=== PATIENT | female | born 1950 | race Caucasian/White ===

== ENCOUNTER 2017-01-03 09:59 | Emergency (ER) | payer BC ==
[2017-01-03] MEDS ORDERED: IOPAMIDOL-300 100 ML VIAL IVP ONE (13:13)
== END 2017-01-03 15:28 | disposition home or self-care (01) ==
DX: R07.9 Chest pain, unspecified (principal); I25.2 Old myocardial infarction; J45.909 Unspecified asthma, uncomplicated; Z85.43 Personal history of malignant neoplasm of ovary; R03.0 Elevated blood-pressure reading, without diagnosis of hypertension
CPT/HCPCS: 36415; 71010; 71275; 80053; 83690; 84484; 85025; 93005; 93010; 99283; 99284; Q9967

== ENCOUNTER 2018-03-23 12:44 | Outpatient (CLI) | payer BC ==
--- NOTE | 2018-04-05 13:39 | Mammography Report ---
Procedure Date: 03/23/2018 Accession Number: [id number] / [id number] Procedure: COREY - Screening Mammo Dig Bilat CPT Code: FULL RESULT: EXAM: Screening Mammo Dig Bilat DATE: 03/23/2018 1:29 PM CLINICAL HISTORY: ROUTINE MAMMOGRAM TECHNIQUE: Bilateral CC and MLO views were obtained. COMPARISON: Films from [facility] dated 03/11/2014, 09/11/2012 FINDINGS: The breasts demonstrate scattered fibroglandular densities bilaterally. Coarse, typically benign calcifications are present. No suspicious masses, clustered microcalcifications, or regions of architectural distortion are identified. IMPRESSION: Benign findings RECOMMENDATION: Routine annual screening unless otherwise clinically indicated. BIRADS CATEGORY 2: Benign findings STANDARD QUALIFYING STATEMENTS: 1. This examination was reviewed with the aid of Computer-Aided Detection (CAD). 2. A negative or benign imaging report should not delay biopsy if clinically suspicious findings are present. Consider surgical consultation if warrented. More than 5% of cancers are not identified by imaging. 3. Dense breasts may obscure an underlying neoplasm.
== END 2018-03-23 12:45 | disposition home or self-care (01) ==
LOC: DI 12:44
PROVIDERS: ATTEND Internal Medicine
DX: Z12.31 Encounter for screening mammogram for malignant neoplasm of breast (principal)
CPT/HCPCS: 77067

== ENCOUNTER 2018-05-03 10:31 | Day surgery (SDC) | payer MEDICARE, BC ==
[2018-05-03] MEDS ORDERED: LACTATED RINGERS 1,000 ML IV ONE (10:57)
[2018-05-03] MEDS ORDERED: fentaNYL 100 MCG/2 ML VIAL ONE (10:59)
[2018-05-03] MEDS ORDERED: MIDAZOLAM 2 MG/2 ML VIAL ONE (10:59)
[2018-05-03] MEDS ORDERED: PROPOFOL 200 MG/20 ML VIAL IVP ONE (11:28)
[2018-05-03 12:26] VITALS: BP 118/73
== END 2018-05-03 10:32 | disposition home or self-care (01) ==
LOC: SDS 10:31
PROVIDERS: ATTEND Internal Medicine Gastroenterology
PROC: 0DBN8ZZ Excision of Sigmoid Colon, Via Natural or Artificial Opening Endoscopic (ICD-10-PCS; 2018-05-03)
PROC: 0DBP8ZZ Excision of Rectum, Via Natural or Artificial Opening Endoscopic (ICD-10-PCS; 2018-05-03)
PROC: 0DBC8ZZ Excision of Ileocecal Valve, Via Natural or Artificial Opening Endoscopic (ICD-10-PCS; principal; 2018-05-03 11:00)
DX: Z12.11 Encounter for screening for malignant neoplasm of colon (principal); D12.0 Benign neoplasm of cecum; D12.5 Benign neoplasm of sigmoid colon; K62.1 Rectal polyp; I25.10 Atherosclerotic heart disease of native coronary artery without angina pectoris; J45.909 Unspecified asthma, uncomplicated; E78.5 Hyperlipidemia, unspecified; J32.9 Chronic sinusitis, unspecified; I25.2 Old myocardial infarction; Z95.5 Presence of coronary angioplasty implant and graft; Z87.891 Personal history of nicotine dependence
CPT/HCPCS: 45380; J7120

== ENCOUNTER 2018-11-02 09:02 | Outpatient (CLI) | payer MEDICARE, OTHER ==
--- NOTE | 2018-11-02 12:42 | XRAY Report ---
Reason: RT HIP PAIN Procedure Date: 11/02/2018 Accession Number: [id number] / [id number] Procedure: XR - Hip w/Pelvis 2-3V RT CPT Code: FULL RESULT: EXAM: RIGHT HIP AND PELVIS RADIOGRAPHY EXAM DATE: 11/02/2018 09:24 AM. HISTORY: Right hip pain. COMPARISONS: None. TECHNIQUE: 1 view of the pelvis and 1 view of the hip. FINDINGS: Bones: Normal. No fracture or bone lesion. Joints: The bilateral hip, pubis symphysis, and sacroiliac joints are preserved. Soft Tissues: Normal. No soft tissue swelling. IMPRESSION: Normal pelvis and hip radiography. RADIA
== END 2018-11-02 09:03 | disposition home or self-care (01) ==
LOC: DI 09:02
PROVIDERS: ATTEND Internal Medicine
DX: M25.551 Pain in right hip (principal)

== ENCOUNTER 2019-04-10 13:52 | Outpatient (CLI) | payer MEDICARE, OTHER ==
--- NOTE | 2019-04-11 08:42 | Mammography Report ---
Reason: ENCNTR SCREEN MAMMOGRAM FOR MALIGNANT NEOPLASM OF Procedure Date: 04/10/2019 Accession Number: [id number] / [id number] Procedure: COREY - Screening Mammo w/Sundeep CPT Code: FULL RESULT: EXAM: Screening Mammo w/Sundeep DATE: 04/10/2019 2:23 PM CLINICAL HISTORY: Screening examination. History of nulliparity. TECHNIQUE: (B) - Bilateral CC and MLO views were obtained. COMPARISON: 03/23/2018 through 09/11/2012. PARENCHYMAL PATTERN: (A) - The breast(s) demonstrate(s) scattered fibroglandular densities. FINDINGS: There are coarse typically benign calcifications. There are no suspicious masses, calcifications, or areas of distortion. IMPRESSION: Benign findings. BI-RADS category 2. RECOMMENDATION: (ANNUAL) - Recommend routine annual screening mammography. BI-RADS CATEGORY: (2) - Benign Findings. STANDARD QUALIFYING STATEMENTS: 1. This examination was not reviewed with the aid of Computer-Aided Detection (CAD). 2. A negative or benign imaging report should not preclude biopsy if clinically suspicious findings are present. 3. Dense breasts may obscure an underlying neoplasm. 4. This examination was reviewed with the aid of 3D breast imaging (tomosynthesis).
== END 2019-04-10 13:53 | disposition home or self-care (01) ==
LOC: DI 13:52
PROVIDERS: ATTEND Internal Medicine
DX: Z12.31 Encounter for screening mammogram for malignant neoplasm of breast (principal)
CPT/HCPCS: 77063; 77067

== ENCOUNTER 2019-06-18 16:45 | Outpatient (CLI) | payer MEDICARE, OTHER ==
[2019-06-18 17:23] LABS: BASOPHILS # (AUTO) 0.1 10^3/uL (0.0-0.1); BASOPHILS % (AUTO) 0.7 %; EOSINOPHILS # (AUTO) 0.2 10^3/uL (0.0-0.7); HGB - HEMOGLOBIN 13.2 g/dL (12.0-16.0); LYMPHOCYTES # (AUTO) 2.4 10^3/uL (1.5-3.5); LYMPHOCYTES % (AUTO) 32.8 %; MEAN CORPUSCULAR HEMOGLOBIN 29.3 pg (27.0-31.0); MEAN CORPUSCULAR HGB CONC 32.9 g/dL (32.0-36.0); MEAN CORPUSCULAR VOLUME 88.9 fL (81.0-99.0); MEAN PLATELET VOLUME 10.6 fL (7.9-10.8); MONOCYTES # (AUTO) 0.5 10^3/uL (0.0-1.0); MONOCYTES % (AUTO) 6.8 %; NEUTROPHILS # (AUTO) 4.2 10^3/uL (1.5-6.6); NEUTROPHILS % (AUTO) 56.4 %; PLT - PLATELET COUNT 233 10^3/uL (130-450); RED BLOOD COUNT 4.51 10^6/uL (4.20-5.40); RED CELL DISTRIBUTION WIDTH 13.3 % (12.0-15.0); WHITE BLOOD COUNT 7.4 x10^3/uL (4.8-10.8)
[2019-06-18 17:43] LABS: ALBUMIN 4.3 g/dL (3.2-5.5); ALBUMIN/GLOBULIN RATIO 1.5 (1.0-2.2); BILIRUBIN,TOTAL 0.7 mg/dL (0.2-1.0); CALCIUM 9.7 mg/dL (8.5-10.3); CREATININE 0.9 mg/dL (0.4-1.0); TOTAL PROTEIN 7.2 g/dL (6.7-8.2)
[2019-06-18 17:50] LABS: GLUCOSE, URINE (UA) NEGATIVE (NEGATIVE); KETONES,URINE (UA) TRACE mg/dL (NEGATIVE); LEUKOCYTE ESTERASE, URINE NEGATIVE (NEGATIVE); NITRITE,URINE NEGATIVE (NEGATIVE); OCCULT BLOOD,URINE NEGATIVE (NEGATIVE); PH,URINE 5.5 PH (5.0-7.5); PROTEIN,URINE NEGATIVE (NEGATIVE); UROBILINOGEN,URINE 0.2 (NORMAL) E.U./dL (NORMAL)
[2019-06-18 17:53] LABS: BILIRUBIN,URINE NEGATIVE (NEGATIVE); CLARITY,URINE Y (CLEAR); ICTOTEST,URINE NEGATIVE
== END 2019-06-18 16:46 | disposition home or self-care (01) ==
LOC: LAB 16:45
PROVIDERS: ATTEND Internal Medicine
DX: R10.9 Unspecified abdominal pain (principal); R11.0 Nausea; R19.7 Diarrhea, unspecified; R50.9 Fever, unspecified
CPT/HCPCS: 36415; 80053; 81001; 81003; 82150; 83690; 85025; 87040; 87086

== ENCOUNTER 2019-06-19 08:00 | Outpatient (CLI) | payer MEDICARE, OTHER | END 2019-06-19 23:59 | disposition home or self-care (01) | LOC: LAB.R 08:00 | PROVIDERS: ATTEND Internal Medicine | DX: R10.9 Unspecified abdominal pain (principal); R19.7 Diarrhea, unspecified; R50.9 Fever, unspecified; R11.0 Nausea | CPT/HCPCS: 83630; 87045; 87046; 87177; 87209; 87493 ==

== ENCOUNTER 2019-07-19 10:22 | Outpatient (CLI) | payer MEDICARE, OTHER ==
[2019-07-19] MEDS ORDERED: IOVERSOL 320 100 ML VIAL IVP ONE ×2 (11:17→12:58)
[2019-07-19] MEDS ORDERED: IOVERSOL 320 50 ML VIAL ONE (11:17)
--- NOTE | 2019-07-19 13:58 | CT Report ---
Reason: NAUSEA,VOMITING,DIARRHEA,FEVER Procedure Date: 07/19/2019 Accession Number: [id number] / [id number] Procedure: CT - Abdomen/Pelvis W CPT Code: FULL RESULT: EXAM: CT ABDOMEN AND PELVIS EXAM DATE: 07/19/2019 12:17 PM. CLINICAL HISTORY: Nausea, vomiting, diarrhea, fever. COMPARISONS: None. TECHNIQUE: Routine helical CT imaging was performed through the abdomen and pelvis. IV contrast: Optiray 320 90 mL. Enteric contrast: Yes. Reconstructions: Coronal and sagittal. In accordance with CT protocol optimization, one or more of the following dose reduction techniques were utilized for this exam: automated exposure control, adjustment of mA and/or KV based on patient size, or use of iterative reconstructive technique. FINDINGS: Lung Bases: Unremarkable. Liver: Normal. No masses. Gallbladder/Bile Ducts: Status post cholecystectomy. Spleen: Normal. Pancreas: Normal. Adrenal Glands: Normal. Kidneys: Normal. No masses or hydronephrosis. Peritoneal Cavity/Bowel: There is no bowel obstruction. There is no free fluid or free air. By size criteria there is no lymphadenopathy. The appendix is not visualized. There are no inflammatory changes in the region surrounding the cecum. Pelvic Organs: Normal. The bladder and visualized pelvic organs are within normal limits. Vasculature: No aneurysms or other significant abnormality. Bones: No significant abnormality. Other: None. IMPRESSION: The etiology of the patient's intermittent chronic abdominal pain is not identified. RADIA
== END 2019-07-19 10:23 | disposition home or self-care (01) ==
LOC: DI 10:22
PROVIDERS: ATTEND Internal Medicine
DX: R11.2 Nausea with vomiting, unspecified (principal); R19.7 Diarrhea, unspecified; R50.9 Fever, unspecified
CPT/HCPCS: 74177; Q9967

== ENCOUNTER 2021-11-29 11:18 | Outpatient (CLI) | payer MEDICARE, OTHER ==
--- NOTE | 2021-11-29 19:02 | CARDIAC PROCEDURE NOTE ---
Stress Test Report Service Date: 11/29/21 Summary: Stress ECHO note. Protocol Sandro. Time 5mins 44 sec. mets 7.05 Reason for stopping test: dyspnea HR response: 54 to 146, which exceed the targe heart rate BP response: 139/92 to 246/107 Symptoms: no CP. did have some throat tightness. No jaw or arm pain ST segment response: minimal ST depressions, upsloping, in V4 and V5 and maximum exercise Arrhythmias: occasional PVC's Impression: no CP or significant EKG changes Conclusion: await ECHO result
== END 2021-11-29 11:19 | disposition home or self-care (01) ==
LOC: DI 11:18
PROVIDERS: ATTEND Internal Medicine
DX: I25.10 Atherosclerotic heart disease of native coronary artery without angina pectoris (principal); I10 Essential (primary) hypertension
CPT/HCPCS: 93350

== ENCOUNTER 2021-11-30 09:20 | Outpatient (CLI) | payer MEDICARE, OTHER ==
--- NOTE | 2021-12-01 07:27 | Mammography Report ---
BILATERAL DIGITAL SCREENING MAMMOGRAM 3D/2D: 11/30/2021 CLINICAL: Routine screening. Family history of breast cancer. Comparison is made to exams dated: 04/10/2019 mammogram, 03/23/2018 mammogram - [facility], and 03/14/2014 mammogram - [facility]. The tissue of both breasts is heterogene ously dense. This may lower the sensitivity of mammography. No significant masses, calcifications, or other findings are seen in either breast. There has been no significant interval change. IMPRESSION: NEGATIVE There is no mammographic evidence of malignancy. A 1 year screening mammogram is recommended. This exam was interpreted at Station ID: [id number]. NOTE: For mammograms, a report in lay terms will be sent to the patient. Approximately 15% of breast malignancies will not be visualized mammographically. In the management of a palpable breast mass, a negative mammogram must not discourage biopsy of a clinically suspicious lesion. Electronically Signed By: Adolfo Hinds M.D. [email or web address]/[email or web address]:11/30/2021 10:38:42 ACR BI-RADS Category 1: Negative 3341F PARENCHYMAL PATTERN: (D) - The breast(s) demonstrate(s) heterogeneously dense fibroglandular daniel mejia. BI-RADS CATEGORY: (1) - 1 RECOMMENDATION: (ANNUAL) - Recommend routine annual screening mammography. [id number] 1 year screening LATERALITY: (B)
== END 2021-11-30 09:21 | disposition home or self-care (01) ==
LOC: DI.S 09:20
PROVIDERS: ATTEND Internal Medicine
DX: Z12.31 Encounter for screening mammogram for malignant neoplasm of breast (principal); Z80.3 Family history of malignant neoplasm of breast

== ENCOUNTER 2022-12-06 14:18 | Outpatient (CLI) | payer MEDICARE ==
--- NOTE | 2022-12-07 11:37 | Mammography Report ---
BILATERAL DIGITAL SCREENING MAMMOGRAM 3D/2D: 12/06/2022 CLINICAL: Routine screening. Comparison is made to exams dated: 11/30/2021 mammogram, 04/10/2019 mammogram, 03/23/2018 mammogram - [facility], and 03/14/2014 mammogram - [facility]. Both breasts are heterogeneously dense, which may obscure small masses (category c / 51-75% glandular tissue). No significant masses, calcifications, or other findings are seen in either breast. There has been no significant interval change. IMPRESSION: NEGATIVE There is no mammographic evidence of malignancy. A 1 year screening mammogram is recommended. Based on the Tyrer Cuzick model (a risk assessment model) the patients lifetime risk is 6.9% and her 10 year risk is 6.3%. According to the ACR, ACS, and NCCN guidelines, an annual breast MRI exam daniela g with mammogram is recommended if the patients lifetime risk is 20% or greater. This exam was interpreted at Station ID: [id number]. NOTE: For mammograms, a report in lay terms will be sent to the patient. Approximately 15% of breast malignancies will not be visualized mammographically. In the management of a palpable breast mass, a negative mammogram must not discourage biopsy of a clinically suspicious lesion. Electronically Signed By: Shashi Adams M.D., jr/melissa:12/06/2022 15:09:32 ACR BI-RADS Category 1: Negative 3341F PARENCHYMAL PATTERN: (D) - The breast(s) demonstrate(s) heterogeneously dense fibroglandular daniel mejia. BI-RADS CATEGORY: (1) - 1 RECOMMENDATION: (ANNUAL) - Recommend routine annual screening mammography. [id number] 1 year screening LATERALITY: (B)
== END 2022-12-06 14:19 | disposition home or self-care (01) ==
LOC: DI 14:18
PROVIDERS: ATTEND Internal Medicine
DX: Z12.31 Encounter for screening mammogram for malignant neoplasm of breast (principal)

== ENCOUNTER 2023-05-06 10:54 | Emergency (ER) | payer MEDICARE ==
[2023-05-06 11:27] LABS: BASOPHILS # (AUTO) 0.1 10^3/uL (0.0-0.1); BASOPHILS % (AUTO) 1.3 %; EOSINOPHILS # (AUTO) 0.4 10^3/uL (0.0-0.7); EOSINOPHILS % (AUTO) 6.4 %; HCT - HEMATOCRIT 39.8 % (37.0-47.0); HGB - HEMOGLOBIN 12.8 g/dL (12.0-16.0); LYMPHOCYTES % (AUTO) 32.3 %; MEAN CORPUSCULAR HEMOGLOBIN 28.8 pg (27.0-31.0); MEAN CORPUSCULAR HGB CONC 32.2 g/dL (32.0-36.0); MEAN CORPUSCULAR VOLUME 89.4 fL (81.0-99.0); MEAN PLATELET VOLUME 11.9 fL (7.9-10.8); MONOCYTES # (AUTO) 0.4 10^3/uL (0.0-1.0); MONOCYTES % (AUTO) 6.1 %; NEUTROPHILS # (AUTO) 3.3 10^3/uL (1.5-6.6); NEUTROPHILS % (AUTO) 53.7 %; PLT - PLATELET COUNT 185 10^3/uL (130-450); RED BLOOD COUNT 4.45 10^6/uL (4.20-5.40); WHITE BLOOD COUNT 6.1 x10^3/uL (4.8-10.8)
--- NOTE | 2023-05-06 11:36 | XRAY Report ---
PROCEDURE: Chest 1 View X-Ray INDICATIONS: Chest Pain TECHNIQUE: One view of the chest was acquired. COMPARISON: None. FINDINGS: Surgical changes and devices: None. Lungs and pleura: No pleural effusions or pneumothorax. Lungs are clear. Mediastinum: Mediastinal contours appear normal. Heart size is normal. Bones and chest wall: No suspicious bony lesions. Overlying soft tissues appear unremarkable. IMPRESSION: No acute cardiopulmonary process. Reviewed by: Mike Robledo MD on 05/06/2023 10:34 AM CALE Approved by: Mike Robledo MD on 05/06/2023 10:34 AM CALE Station ID: [id number]
[2023-05-06 11:43] LABS: ALBUMIN 4.2 g/dL (3.2-5.5); ALBUMIN/GLOBULIN RATIO 1.4 (1.0-2.2); BILIRUBIN,TOTAL 0.7 mg/dL (0.2-1.0); CALCIUM 9.5 mg/dL (8.5-10.3); CREATININE 0.8 mg/dL (0.4-1.0); POTASSIUM 3.6 mmol/L (3.5-5.0); TOTAL PROTEIN 7.2 g/dL (6.7-8.2)
[2023-05-06] MEDS ORDERED: SODIUM CHLORIDE 0.9% 1,000 ML IV STA (12:34)
--- NOTE | 2023-05-06 12:36 | ED Physician Documentation ---
PD HPI DYSPNEA - Stated complaint Stated Complaint: RAPID HR, CLAMMY - Chief complaint Chief Complaint: Cardiac - History obtained from History obtained from: Patient, Family - History of Present Illness Timing - onset: Today Timing - onset during: Light activity Timing - duration: Hours Timing - details: Gradual onset, Still present Inciting event(s): Other (worsening exertinaol dyspnea over past 2 months) Improved by: Rest Worsened by: Exertion Associated symptoms: Chest pain / discomfort, Diaphoresis. No: Fever, Cough, Hemoptysis, Wheezing, Palpitations, Bilateral edema, Unilateral edema Similar symptoms before: Diagnosis (GA with one stent 10 years ago) Recently seen: Clinic (being seen for bradycardia/arrhythmia) - Additional information Additional information: 72-year-old Eh schrader has a history of coronary artery disease and she has had a stent placed about 10 years ago. Over the past 2 months she has developed in creasing exertional dyspnea. She went camping this week and while camping she noted exertional dyspnea preventing her from doing much. Today she is finding herself clammy and having an issue with chest pressure. She has slight nausea and "freitas color" this morning with the episode of chest pressure. Review of Systems Constitutional: reports: Fatigue, Sweats. denies: Fever, Chills Eyes: denies: Decreased vision Ears: denies: Ear pain Nose: reports: Congestion. denies: Rhinorrhea / runny nose Throat: denies: Sore throat Cardiac: reports: Chest pain / pressure. denies: Palpitations, Pedal edema, Calf pain Respiratory: reports: Dyspnea. denies: Cough, Wheezing GI: denies: Abdominal Pain, Nausea, Vomiting, Constipation, Diarrhea : reports: Frequency. denies: Dysuria Skin: denies: Rash Musculoskeletal: denies: Neck pain, Back pain, Extremity pain PD PAST MEDICAL HISTORY - Past Medical History Cardiovascular: High cholesterol, Coronary artery disease, Angina, GA Respiratory: Asthma, Shortness of breath Endocrine/Autoimmune: None GI: GERD, Chronic constipation ASSAYER HELPER: Ovarian cancer : Incontinence HEENT: Chronic vision loss, Chronic sinusitis, Dental implants, Other Psych: Depression Musculoskeletal: Osteoarthritis Derm: None - Past Surgical History Past Surgical History: Yes General: Cholecystectomy, Colonoscopy /ASSAYER HELPER: Hysterectomy, Oophrectomy, LEEP (Cervical surgery) Cardiovascular: Coronary stent, Angioplasty HEENT: Tonsil/Adenoidectomy - Present Medications Home Medications: Ambulatory Orders Medication Instructions Recorded Confirmed FLUoxetine [PROzac] 20 mg PO DAILY 04/05/15 05/03/18 Levocetirizine Dihydrochloride 5 mg PO DAILY PM 04/05/15 05/03/18 [Xyzal] Montelukast Sodium [Singulair] 10 mg PO DAILY PRN 04/05/15 05/03/18 Zileuton [Zyflo] 1,200 mg PO BID 04/05/15 05/03/18 Albuterol Sulfate [Proair Hfa 1 - 2 puffs INH Q4H PRN 05/01/18 05/03/18 Inhaler] Clopidogrel [Plavix] 75 mg PO DAILY 05/01/18 05/01/18 Fluticasone/Salmeterol [Advair 1 each IH BID PRN 05/01/18 05/03/18 250-50 Diskus] - Allergies Allergies/Adverse Reactions: Allergies Allergy/AdvReac Type Severity Reaction Status Date / Time aspirin Allergy Severe Respiratory Verified 05/06/23 11:01 NSAIDS (Non-Steroidal Allergy Severe Respiratory Verified 05/06/23 11:01 Anti-Inflamma acetaminophen [From Vicodin] Allergy Nausea Verified 05/06/23 11:01 hydrocodone [From Vicodin] Allergy Nausea Verified 05/06/23 11:01 - Social History Does the pt smoke?: No Smoking Status: Never smoker Does the pt drink ETOH?: Yes Does the pt have substance abuse?: No - Immunizations Immunizations are current?: Yes Immunizations: TDAP >10years/unknown PD ED PE NORMAL - Vitals Vital signs reviewed: Yes (Bradycardic and hypertensive) - General General: Alert and oriented X 3, No acute distress, Well developed/nourished - HEENT HEENT: Atraumatic, PERRL, EOMI - Neck Neck: Supple, no meningeal sign, No bony TTP - Cardiac Cardiac: No murmur, Other (bradycardic to 50) - Respiratory Respiratory: No respiratory distress, Clear bilaterally - Abdomen Abdomen: Soft, Non tender - Back Back: No CVA TTP, No spinal TTP - Derm Derm: Normal color, Warm and dry, No rash - Extremities Extremities: No deformity, No edema - Neuro Neuro: Alert and oriented X 3, mental retardation nurse 2-12 intact, No motor deficit, No sensory deficit, Normal speech Eye Opening: Spontaneous Motor: Obeys Commands Verbal: Oriented GCS Score: 15 - Psych Psych: Normal mood, Normal affect Results - Vitals Vitals: Vital Signs - 24 hr 05/06/23 05/06/23 05/06/23 11:01 12:17 14:00 Temperature 36.1 C L Heart Rate 50 L 45 L 48 L Respiratory 18 16 11 L Rate Blood Pressure 139/93 H 141/71 H 162/81 H O2 Saturation 98 97 98 05/06/23 05/06/23 16:27 16:52 Temperature Heart Rate 52 L 48 L Respiratory 15 15 Rate Blood Pressure 164/95 H 152/83 H O2 Saturation 99 99 Oxygen O2 Source Room air - EKG (time done) 1104 EKG releavant findings:: EKG personally interpreted by author of this note. Relevant findings are: Rate: Rate (enter#) (53) Rhythm: NSR Intervals: Prolonged QT (borderline) Ischemia: Normal ST segments Compare to prior EKG: Changed from prior EKG (SPT 01-03-2017 the rate has decreased and PAC's are now present. ) Computer interpretation: Agree with computer - Labs Labs: Laboratory Tests 05/06/23 05/06/23 05/06/23 11:20 11:20 11:20 WBC 6.1 RBC 4.45 Hgb 12.8 Hct 39.8 MCV 89.4 MCH 28.8 MCHC 32.2 RDW 13.0 Plt Count 185 MPV 11.9 H Neut # (Auto) 3.3 Lymph # (Auto) 2.0 Finney # (Auto) 0.4 Eos # (Auto) 0.4 Baso # (Auto) 0.1 Absolute Nucleated RBC 0.00 Nucleated RBC % 0.0 APTT D-Dimer Sodium 141 Potassium 3.6 Chloride 110 Carbon Dioxide 24 Anion Gap 7.0 BUN 15 Creatinine 0.8 Estimated GFR (MDRD) 70 L Glucose 102 H Calcium 9.5 Total Bilirubin 0.7 AST 20 ALT 17 Alkaline Phosphatase 59 Troponin I High Sens 49.7 H* B-Natriuretic Peptide Total Protein 7.2 Albumin 4.2 Globulin 3.0 Albumin/Globulin Ratio 1.4 Lipase 117 H 05/06/23 05/06/23 05/06/23 11:20 15:21 15:21 WBC RBC Hgb Hct MCV MCH MCHC RDW Plt Count MPV Neut # (Auto) Lymph # (Auto) Finney # (Auto) Eos # (Auto) Baso # (Auto) Absolute Nucleated RBC Nucleated RBC % APTT 32.3 D-Dimer < 200.0 L Sodium Potassium Chloride Carbon Dioxide Anion Gap BUN Creatinine Estimated GFR (MDRD) Glucose Calcium Total Bilirubin AST ALT Alkaline Phosphatase Troponin I High Sens B-Natriuretic Peptide 298 H Total Protein Albumin Globulin Albumin/Globulin Ratio Lipase Procedures - IVC sono (time) 1230 Bedside IVC sono: IVC measures (cm) (1.01), IVC collapsed c insp (cm) (complete), Dehydration (est >1 liter deficit) PD Medical Decision Making - ED course Complexity details: reviewed old records, reviewed results, re-evaluated patient, considered differential, d/w patient, d/w family Reviewed Lab Results: We reviewed a complete blood count with a normal white blood cell count normal hemoglobin hematocrit and platelets chemistries were unremarkable with the exception of a mildly elevated lipase at 117. Her electrolytes kidney and liver function are otherwise completely normal. A high-sensitivity troponin is elevated at 49.7. I interpreted these results to indicate the patient has had an NSTEMI. She has normal blood counts which does not account for this finding. We did interrogate the patient's inferior vena cava with POCUS and found she was dehydrated. This appears to be a risk factor for NSTEMI. ED course: 72-year-old female presents to the emergency department with worsening symptoms of angina. She has exertional dyspnea worsening over the past 2 months as well as today's episode of chest pain and dyspnea with clamminess that is correlated with an elevation in her high-sensitivity troponin. This is likely a result of progression of coronary artery disease in the face of volume depletion. The patient has been diagnosed with NSTEMI and this really appears like progression of coronary artery disease to unstable angina. We are hydrating the patient currently and we have sought a bed. I have been able to talk to Dr. Suha Escudero at [facility] and he recommends consultation with the hospitalist. I talked to Dr. Watkins at [facility] and he recommended placing patient on a heparin drip and administering aspirin. The patient is allergic to aspirin. She is on Plavix. She is placed onto a heparin drip. A D-dimer has been ordered. Departure - Departure Disposition: 02 Transfer Acute Care Hosp Clinical Impression: NSTEMI (non-ST elevated myocardial infarction), Dehydration, Unstable angina Condition: Stable Discharge Date/Time: 05/06/23 17:05
[2023-05-06] MEDS ORDERED: ACETAMINOPHEN 325 MG TABLET PO STA (12:52)
[2023-05-06] MEDS ORDERED: HEPARIN 25000UNITS/500ML (D5W) 25,000 UNIT/500 ML BAG IV SCH (16:00)
[2023-05-06 16:54] VITALS: BP 152/83
== END 2023-05-06 17:05 | disposition short-term general hospital (02) ==
LOC: ED 10:54
DX: I21.4 Non-ST elevation (NSTEMI) myocardial infarction (principal); E86.0 Dehydration; E78.00 Pure hypercholesterolemia, unspecified; I25.10 Atherosclerotic heart disease of native coronary artery without angina pectoris; I25.2 Old myocardial infarction; Z79.899 Other long term (current) drug therapy; Z79.02 Long term (current) use of antithrombotics/antiplatelets; Z79.51 Long term (current) use of inhaled steroids
CPT/HCPCS: 36415; 71045; 80053; 83690; 83880; 84484; 85025; 85379; 85730; 93005; 96374; 99284; 99285; A9270; 85027

== ENCOUNTER 2024-01-16 11:15 | Outpatient (CLI) | payer MEDICARE ==
--- NOTE | 2024-01-17 09:54 | Mammography Report ---
BILATERAL DIGITAL SCREENING MAMMOGRAM 3D/2D: 01/16/2024 CLINICAL: Routine screening. Comparison is made to exams dated: 12/06/2022 mammogram, 11/30/2021 mammogram, 04/10/2019 mammogram, 03/23 mammogram - [facility], and 03/14/2014 mammogram - [facility]. There are scattered areas of fibroglandular density in both breasts (category b / 25%-50% glandular t issue). There is a possible developing focal asymmetry in the left breast at 12 o'clock middle depth. This i s more prominent. No other significant masses, calcifications, or other findings are seen in either breast. IMPRESSION: INCOMPLETE: NEEDS ADDITIONAL IMAGING EVALUATION The possible developing focal asymmetry in the left breast resembles fibroglandular tissue and is ind eterminate. Additional views with possible ultrasound are recommended. Based on the Tyrer Cuzick model (a risk assessment model) the patient's lifetime risk is 4.2% and her 10 year risk is 4.2%. According to the ACR, ACS, and NCCN guidelines, an annual breast MRI exam daniela g with mammogram is recommended if the patient's lifetime risk is 20% or greater. This exam was interpreted at Station ID: [id number]. NOTE: For mammograms, a report in lay terms will be sent to the patient. Approximately 15% of breast malignancies will not be visualized mammographically. In the management of a palpable breast mass, a negative mammogram must not discourage biopsy of a clinically suspicious lesion. Electronically Signed By: Mike Robledo M.D. aty/:01/16/2024 18:14:17 ACR BI-RADS Category 0: Incomplete 3340F PARENCHYMAL PATTERN: (A) - The breast(s) demonstrate(s) scattered fibroglandular densities. BI-RADS CATEGORY: (0) - 0 Mammo and [place] [id number] Immediate follow-up LATERALITY: (L)
== END 2024-01-16 11:16 | disposition home or self-care (01) ==
LOC: DI 11:15
PROVIDERS: ATTEND Internal Medicine
DX: Z12.31 Encounter for screening mammogram for malignant neoplasm of breast (principal); R92.323 Mammographic fibroglandular density, bilateral breasts; R92.8 Other abnormal and inconclusive findings on diagnostic imaging of breast

== ENCOUNTER 2024-02-19 09:47 | Outpatient (CLI) | payer MEDICARE ==
--- NOTE | 2024-02-20 10:11 | Ultrasound Report ---
LIMITED ULTRASOUND OF LEFT BREAST: 02/19/2024 CLINICAL: Patient returns today to evaluate a focal asymmetry in the left breast. Comparison is made to exams dated: 02/19/2024 mammogram, 01/16/2024 mammogram, 12/06/2022 mammogram, mammogram, 03/23/2018 mammogram - [facility], and 03/14/2014 mammogram - [facility]. Color flow and real-time ultrasound of the left breast 10-11 o'clock region were performed. Pablo sc shy images of the real-time examination were reviewed. No significant abnormalities were seen sonographically in the left breast. IMPRESSION: NEGATIVE There is no sonographic evidence of malignancy. There is no abnormality seen in the left breast to correspond with the mammography finding which like ly represents normal fibroglandular tissue. A 1 year screening mammogram is recommended. Findings and recommendations were conveyed to the patient during today's evaluation. This exam was interpreted at Station ID: [id number]. Electronically Signed By: Mike Robledo M.D. aty/:02/19/2024 10:46:08 Ultrasound BI-RADS: 1 Negative BI-RADS CATEGORY: (1) - 1 RECOMMENDATION: (ANNUAL) - Recommend routine annual screening mammography. [id number] 1 year screening LATERALITY: (B)
--- NOTE | 2024-02-20 10:11 | Mammography Report ---
UNILATERAL LEFT DIGITAL DIAGNOSTIC MAMMOGRAM 3D/2D WITH SPOT COMPRESSION: 02/19/2024 CLINICAL: Patient returns today to evaluate an asymmetry in the left breast. Comparison is made to exams dated: 01/16/2024 mammogram, 12/06/2022 mammogram, 11/30/2021 mammogram, 03/23 mammogram, 03/23/2018 mammogram - [facility], and 03/14/2014 mammogram - [facility]. There are scattered areas of fibroglandular density in the left breast (category b / 25%-50% glandula r tissue). The previously described possible developing focal asymmetry in the left breast at 1 o'clock middle d epth is not confirmed in additional views. This is less prominent and decreased in size. No other significant masses or calcifications are seen in the breast. IMPRESSION: INCOMPLETE: NEEDS ADDITIONAL IMAGING EVALUATION The possible developing focal asymmetry in the left breast resembles fibroglandular tissue and is ind eterminate. An ultrasound is recommended for further evaluation and is scheduled to immediately fol low this examination. Based on the Tyrer Cuzick model (a risk assessment model) the patient's lifetime risk is 4.2% and her 10 year risk is 4.2%. According to the ACR, ACS, and NCCN guidelines, an annual breast MRI exam daniela g with mammogram is recommended if the patient's lifetime risk is 20% or greater. This exam was interpreted at Station ID: [id number]. NOTE: For mammograms, a report in lay terms will be sent to the patient. Approximately 15% of breast malignancies will not be visualized mammographically. In the management of a palpable breast mass, a negative mammogram must not discourage biopsy of a clinically suspicious lesion. Electronically Signed By: Mike Robledo M.D. aty/:02/19/2024 10:45:24 ACR BI-RADS Category 0: Incomplete 3340F PARENCHYMAL PATTERN: (A) - The breast(s) demonstrate(s) scattered fibroglandular densities. BI-RADS CATEGORY: (0) - 0 Ultrasound [id number] Immediate follow-up LATERALITY: (L)
== END 2024-02-19 09:48 | disposition home or self-care (01) ==
LOC: DI 09:47
PROVIDERS: ATTEND Internal Medicine
DX: R92.8 Other abnormal and inconclusive findings on diagnostic imaging of breast (principal)